=== PATIENT | male | born 1960 | race Caucasian/White ===

== ENCOUNTER 2018-08-29 06:29 | Day surgery (SDC) | payer OTHER ==
[2018-08-29] MEDS ORDERED: Bupivacaine 0.5% 50 ML MDV ONE (06:50)
[2018-08-29] MEDS ORDERED: Lactated Ringers 1,000 ML IV SCH (07:00)
[2018-08-29] MEDS ORDERED: ceFAZolin 2 GM in Premix Bag 1 BAG IV ONE (07:00)
[2018-08-29] MEDS ORDERED: Nozin Nasal Sanitizer NASBOTH ONE (07:00)
[2018-08-29] MEDS ORDERED: fentaNYL 250 MCG/5 ML SDV ONE ×2 (07:18→08:51)
[2018-08-29] MEDS ORDERED: Glycopyrrolate 0.2 MG/ML 5 ML MDV ONE (07:19)
[2018-08-29] MEDS ORDERED: Succinylcholine 200 MG/10 ML MDV ONE (07:19)
[2018-08-29] MEDS ORDERED: Rocuronium 50 MG/5 ML Vial ONE (07:19)
[2018-08-29] MEDS ORDERED: Propofol 200 MG/20 ML SDV ONE (07:19)
[2018-08-29] MEDS ORDERED: Neostigmine Methylsulfate 1 MG/ML 5 ML Syringe ONE (07:19)
[2018-08-29] MEDS ORDERED: Ondansetron 4 MG/2 ML SDV ONE (07:19)
[2018-08-29] MEDS ORDERED: Dexamethasone 4 MG/ML SDV ONE (07:19)
[2018-08-29] MEDS ORDERED: Morphine 2 MG/ML Syringe IVPUSH ONE (10:29)
[2018-08-29] MEDS ORDERED: Acetaminophen/oxyCODONE 325-5 MG Tab PO PRN (11:05)
[2018-08-29] MEDS ORDERED: Ketorolac 60 MG/2 ML SDV IM ONE (11:30)
--- NOTE | 2018-08-31 16:59 | OR ---
DATE OF PROCEDURE: 08/29/2018 PREOPERATIVE DIAGNOSES: 1. Anterior cruciate ligament tear, right knee. 2. Medial meniscus tear, right knee. POSTOPERATIVE DIAGNOSES: 1. Anterior cruciate ligament tear, right knee. 2. Posterior horn medial meniscus tear, complex. 3. Chondromalacia patella, grade 3. PROCEDURE: 1. Arthroscopy right knee with chondroplasty patella. 2. Partial medial meniscectomy. 3. Anterior cruciate ligament reconstruction with bone-patellar tendon-bone autograft. ANESTHESIA: General. INDICATIONS: yT is a 58-year-old gentleman, who sustained a work-related injury to his right knee resulting in tear of the ACL. He has had multiple recurrent episodes of instability in the knee often several times per day. Examination, symptoms, and MRI are all consistent with an acute tear of the ACL secondary to work-related injury as well as a tear of the medial meniscus. He now presents for ACL reconstruction for his instability and debridement of meniscus as needed. Risks, benefits, potential complications of procedure were discussed. DESCRIPTION OF PROCEDURE: After adequate anesthesia was obtained, the patient was placed supine with a tourniquet on the right upper thigh. Right leg was prepped and draped in a sterile fashion. Leg was exsanguinated and tourniquet inflated to 300 mmHg. A longitudinal incision was made over the anterior aspect of the knee from the inferior pole of the patella just distal to the tibial tubercle. This is carried down through the subcutaneous tissues. The central third of the patellar tendon was then harvested in a graft approximately 10 mm wide along with a bone plug from the inferior patella and tibial tubercle. Bone plugs were resected using combination of an oscillating saw and osteotomes. The graft was then prepared on the back table with the bone plugs fitting through an 11 mm tunnel. Drill holes were placed into each of the bone plugs for placement of traction sutures. The graft was then kept moist on the back table. The scope was then introduced, and the patellofemoral joint is inspected. This revealed grade 3 chondromalacia in the central portion of the patella with multiple loose fragments. Multiple loose fragments of articular cartilage and possibly meniscus were free-floating within the suprapatellar pouch as well as in the medial and lateral compartments. These were cleared using a shaver. Medial compartment was evaluated. There was no evidence of articular cartilage defect of the medial femoral condyle or tibial plateau. A complex macerated tear of the posterior horn of the medial meniscus was present. This was debrided back to a stable margin using a combination of a punch basket and shaver. All loose fragments were removed. Evaluation of the intercondylar notch revealed complete tear of the anterior cruciate ligament. Shaver was used to debride the remaining portion of the ligament and delineate the footprint. Inspection of the lateral compartment revealed no evidence of meniscus tear. Multiple free-floating articular cartilage fragments were present and were removed with the shaver. Attention returned to the intercondylar notch. Using a combination of curette and motorized bur, notchplasty was performed. He did have significant narrow A-frame configuration. Drop off point in the back of the tunnel was delineated. A curette was used to maryam position for the tibial tunnel approximately 5 mm anterior to the posterior drop of point. Tibial guide was then placed. A guidewire was advanced through the guide up into the tibial spine into the footprint of the ACL. An 11 mm reamer was then placed over this. A guide pin was then advanced through the tibial tunnel and into the position marked in the femur. This was advanced through the femur and out the anterolateral portion of the skin in the leg. The [employer] Rigidfix guide was then placed over this and position confirmed for a depth of 30 mm. Two guide cannulas were then drilled into the lateral femoral cortex. The guide was then removed. The graft was then advanced through the tibial tunnel and into the femoral tunnel and secured with the bone plug flush at 30 mm. Drilling through the previously placed guide cannulas, transfixing pins were then placed. The guide cannulas were removed. Tension was then placed on the graft with no evidence of motion in the femoral tunnel. The knee was taken through several cycles of flexion and extension, tensioning the graft. A guide pin for the Lindsay interference screw was then placed into the tibial tunnel. A tap was utilized and a 9 x 30 mm interference screw was placed with excellent purchase. After completion of this, excellent endpoint was noted with solid Camron and a negative drawer. Shaver was used to remove all loose bone fragments. No other abnormalities were identified. Attention was then returned to the patellofemoral joint where chondroplasty was performed on the patella, shaving all the loose fragments. The scope was then withdrawn and the knee was drained. Incision was then closed with 0 Vicryl in a running fashion in the paratenon over the patellar tendon. The skin was closed with 2-0 Vicryl and a running 3-0 Monocryl. Steri- Strips were applied. Skin edges and joint were then infiltrated with 0.5% Marcaine. Sterile dressing was applied and a T-scope brace was placed with the knee locked at 10 degrees of flexion. The patient tolerated the procedure very well, there were no complications, taken from the operating room in stable condition, Delfino Ricci MD /[id number]
== END 2018-08-29 12:45 | disposition home or self-care (01) ==
LOC: JP.SDS 06:29
PROVIDERS: ATTEND Specialist
DX: S83.511A Sprain of anterior cruciate ligament of right knee, initial encounter (principal); S83.241A Other tear of medial meniscus, current injury, right knee, initial encounter; M22.41 Chondromalacia patellae, right knee; I10 Essential (primary) hypertension; E78.5 Hyperlipidemia, unspecified; G47.33 Obstructive sleep apnea (adult) (pediatric); R42 Dizziness and giddiness; E66.9 Obesity, unspecified; Z68.36 Body mass index [BMI] 36.0-36.9, adult; Z87.891 Personal history of nicotine dependence; Z79.82 Long term (current) use of aspirin; Z79.899 Other long term (current) drug therapy; Z79.1 Long term (current) use of non-steroidal anti-inflammatories (NSAID); Z88.8 Allergy status to other drugs, medicaments and biological substances; Y99.0 Civilian activity done for income or pay; Z99.89 Dependence on other enabling machines and devices
CPT/HCPCS: 29881; 29888; 36415; 80048; 85027; A9270; J0330; J0690; J1100; J1885; J2270; J2405; J2704; J2710; J3010; J3490; J7120